=== PATIENT | female | born 1995 | race Caucasian/White ===

== ENCOUNTER 2020-08-16 19:57 | Inpatient (IN) ==
[2020-08-16] MEDS ORDERED: Lidocaine 1% 20 ML MDV INFILT PRN (20:22)
[2020-08-16] MEDS ORDERED: Metoclopramide 10 MG/2 ML VIAL IVP PRN (20:22)
[2020-08-16] MEDS ORDERED: miSOPROStoL 25 MCG TABLET VG PRN (20:22)
[2020-08-16] MEDS ORDERED: Famotidine 20 MG/2 ML VIAL IVP PRN (20:22)
[2020-08-16] MEDS ORDERED: Ondansetron 4 MG/2 ML VIAL IVP PRN (20:22)
[2020-08-16] MEDS ORDERED: Naloxone 0.4 MG/ML INJ IVP PRN (20:22)
[2020-08-16 21:29] LABS: Basophils % 0.5 %; Eosinophils % 0.4 %; Hematocrit 35.5 % (35.3-44.9); Hemoglobin 11.8 g/dL (11.5-15.4); Immature Granulocytes % 0.4 % (0-4); Lymphocytes # 2.1 K/mcL (0.6-4.6); Lymphocytes % 26.7 %; Mean Corpuscular HGB Conc 33.2 g/dL (31.6-35.5); Mean Corpuscular Hemoglobin 28.3 pg (28.0-33.3); Mean Corpuscular Volume 85.1 fL (83.0-100.0); Mean Platelet Volume 11.6 fL (9.4-12.4); Monocytes # 0.8 K/mcL (0.0-1.3); Monocytes % 10.1 %; Neutrophils # 4.8 K/mcL (1.6-8.9); Platelet Count 212 K/mcL (140-400); Red Blood Count 4.17 M/mcL (3.82-4.97); Red Cell Distribution Width 13.4 % (11.5-14.5); Segmented Neutrophils % 61.9 %; White Blood Count 7.7 K/mcL (4.3-11.1)
[2020-08-16 21:41] LABS: Amphetamine Screen,Urine Negative ng/mL (Cutoff=1000); Barbiturate Screen,Urine Negative ng/mL (Cutoff=200); Benzodiazepines Screen,Urine Negative ng/mL (Cutoff=200); Cannabinoid Screen,Urine Negative ng/mL (Cutoff = 50); Cocaine Screen,Urine Negative ng/mL (Cutoff= 300); Opiate Screen,Urine Negative ng/mL (Cutoff=300); Phencyclidine Screen,Urine Negative ng/mL (Cutoff=25)
[2020-08-16 21:42] LABS: Protein/Creatinine Ratio,Urine 0.1 mg/mg (0.00-0.20)
[2020-08-16 21:49] LABS: Alanine Aminotransferase 19 Units/L (7-52); Aspartate Amino Transferase 22 Units/L (13-39); BUN/Creatinine Ratio 21 (6-26); Blood Urea Nitrogen 15 mg/dL (6-20); Glucose 76 mg/dL (70-105); Lactate Dehydrogenase 135 Units/L (140-271); Uric Acid 4.1 mg/dL (2.3-7.6); eGFR For African Americans > 60 (> 60); eGFR For Non-African Americans > 60 (> 60)
[2020-08-17] MEDS ORDERED: miSOPROStoL 25 MCG TABLET PO PRN (02:34)
[2020-08-17] MEDS: *HR* FentaNYL (PF) 100 MCG/2 ML VIAL IVP PRN ×2 (02:44→05:52)
[2020-08-17] MEDS ORDERED: Ondansetron 4 MG/2 ML VIAL IVP PRN (07:25)
[2020-08-17] MEDS ORDERED: Ropivacaine/PF 0.2% 20 ML VIAL EP ONE (07:25)
[2020-08-17] MEDS ORDERED: Naloxone 0.4 MG/ML INJ IVP PRN (07:25)
[2020-08-17] MEDS ORDERED: EPHEDrine 50 MG/ML VIAL IVP PRN (07:25)
[2020-08-17] MEDS ORDERED: *HR* FentaNYL (PF) 100 MCG/2 ML VIAL EP ONE (07:25)
[2020-08-17] MEDS ORDERED: Epidural Premix (fent/bupiv) 110 ML EP ONE (07:30)
[2020-08-17] MEDS ORDERED: Epidural Premix (fent/bupiv) 110 ML EP SCH (07:30)
[2020-08-17] MEDS: Ringers Solution, Lactated 1,000 ML IVC SCH ×2 (07:57→12:40)
[2020-08-17] MEDS ORDERED: Oxytocin 20 units/ LR 1000 mL 20 UNIT/1,000 ML BAG IVC SCH ×2 (08:30→18:57)
[2020-08-17] MEDS ORDERED: 0.9 % Sodium Chloride 1,000 ML ONE (11:50)
[2020-08-17] MEDS ORDERED: Ropivacaine/PF 0.2% 20 ML VIAL ONE (12:10)
[2020-08-17] MEDS ORDERED: *HR* FentaNYL (PF) 100 MCG/2 ML VIAL ONE (12:10)
[2020-08-17] MEDS ORDERED: Benzocaine/Menthol 56 GM AEROSOL SPRAY TP PRN (18:57)
[2020-08-17] MEDS ORDERED: Lanolin 7 G OINT...G. TP PRN (18:57)
[2020-08-17] MEDS ORDERED: Measles/Mumps/Rubella Vacc 0.5 ML VIAL SQ PRN (18:57)
[2020-08-17] MEDS: Ibuprofen 600 MG TABLET PO SCH (19:48)
[2020-08-18] MEDS: Ibuprofen 600 MG TABLET PO SCH ×4 (02:57→15:58)
[2020-08-18] MEDS: Acetaminophen 325 MG TABLET PO SCH ×3 (08:15→15:58)
[2020-08-18] MEDS ORDERED: Prenatal Vit/FA 1 EACH TABLET PO SCH (09:00)
[2020-08-18] MEDS ORDERED: *HR* HYDROcodone/Acet 5/325 mg TABLET PO PRN (09:55)
[2020-08-18] MEDS ORDERED: Simethicone 80 MG TAB.CHEW PO PRN (12:51)
[2020-08-18 15:38] VITALS: BP 121/76
[2020-08-18] MEDS ORDERED: FLU Vac QV 20-21 (6Month+)/PF 0.5 ML SYRINGE IM ONE (17:11)
== END 2020-08-18 18:50 | disposition home or self-care (01) | DRG 560 ==
LOC: 1NENULAB 19:57 → 1NENUOBS 08-17 18:29
PROVIDERS: ADMIT Obstetrics & Gynecology; ATTEND Obstetrics & Gynecology